=== PATIENT | female | born 1960 | race Caucasian/White ===

== ENCOUNTER 2021-12-21 14:08 | Inpatient (IN) | payer BC ==
--- NOTE | 2021-12-21 16:22 | RAD REPORT ---
EXAM DESCRIPTION: Hailee Single View12/21/2021 4:15 pm CLINICAL HISTORY: Chest pain COMPARISON: none FINDINGS: The lungs appear clear of acute infiltrate. The heart is normal size IMPRESSION: No acute abnormalities displayed
--- NOTE | 2021-12-21 17:00 | RAD REPORT ---
EXAM DESCRIPTION: US - Abdomen Exam Limited - 12/21/2021 4:37 pm CLINICAL HISTORY: Abdominal pain. COMPARISON: None. FINDINGS: 1 centimeter stone within the neck of the gallbladder. Borderline gallbladder wall thicken ing. Small to moderate amount of sludge within the gallbladder. Common bile duct measures 7 millimeters. IMPRESSION: Cholelithiasis. Borderline gallbladder wall thickening may indicate cholecystitis and should be correlated clinically Borderline dilatation of common bile duct
[2021-12-21 18:06] LABS: Absolute Lymphocytes (CBC) 2.3 K/uL (0.7-4.9); Hematocrit 37.7 % (36.0-45.0); MCV 83.8 fL (80-100); MPV 7.5 fL (7.6-11.3)
[2021-12-21] MEDS ORDERED: ONDANSETRON 4 MG (ODT) TAB ONE (18:29)
[2021-12-21 18:30] LABS: Albumin 3.8 g/dL (3.4-5.0); Potassium 4.6 mmol/L (3.5-5.1); Protein, Total 8.2 g/dL (6.4-8.2); Troponin High Sensitivity 7.6 pg/mL (<58.9)
--- NOTE | 2021-12-21 18:55 | EDPHYS ---
Physician Documentation [facility] Name: Caprice Orozco Age: 61 yrs Sex: Female : 1960 Arrival Date: 12/21/2021 Time: 14:13 Bed 12 Private MD: Christina Jasmine C ED Physician Gary Lentz HPI: 12/21 18:52 This 61 yrs old Female presents to ER via Ambulatory with complaints of Abdominal Pain, kb Shoulder Pain, Back Pain, Nausea. 18:52 The patient presents with abdominal pain in the right upper quadrant. Onset: The kb symptoms/episode began/occurred 2 day(s) ago. The symptoms radiate to left back, the right shoulder. Associated signs and symptoms: Pertinent positives: nausea and vomiting, Pertinent negatives: diarrhea, fever. The symptoms are described as constant. Modifying factors: The symptoms are alleviated by nothing, the symptoms are aggravated by pressure. Severity of pain: At its worst the pain was moderate in the emergency department the pain is unchanged. The patient has experienced a previous episode. The patient has not recently seen a physician. Historical: - Allergies: 14:30 No Known Allergies; hb - PMHx: 14:30 thyroid disease; Hypertensive disorder; hb - PSHx: 14:30 thryroid; hb - Immunization history:: Adult Immunizations up to date. - Social history:: Smoking status: Patient denies any tobacco usage or history of. ROS: 18:51 Constitutional: Negative for fever, chills, and weight loss. kb 18:51 Abdomen/GI: Positive for abdominal pain, nausea and vomiting, Negative for diarrhea, constipation. 18:51 All other systems are negative. Exam: 18:51 Constitutional: This is a well developed, well nourished patient who is awake, alert, kb and in no acute distress. Head/Face: Normocephalic, atraumatic. ENT: Moist Mucous membranes Cardiovascular: Regular rate and rhythm with a normal S1 and S2. No gallops, murmurs, or rubs. No pulse deficits. Respiratory: Respirations even and unlabored. No increased work of breathing. Talking in full sentences Skin: Warm, dry with normal turgor. Normal color. MS/ Extremity: Pulses equal, no cyanosis. Neurovascular intact. Full, normal range of motion. Neuro: Awake and alert, GCS 15, oriented to person, place, time, and situation. Moves all extremities. Normal gait. Psych: Awake, alert, with orientation to person, place and time. Behavior, mood, and affect are within normal limits. 18:51 Abdomen/GI: Inspection: abdomen appears normal, Bowel sounds: normal, in all quadrants, Palpation: soft, in all quadrants, moderate abdominal tenderness, in the right upper quadrant. Vital Signs: 14:27 BP 131 / 69; Pulse 83; Resp 18; Temp 98.6; Pulse Ox 100% ; Weight 95.25 kg; Height 5 hb ft. 9 in. (175.26 cm); Pain 10/10; 15:40 BP 140 / 71; Pulse 97; Resp 17; Pulse Ox 98% on R/A; jh5 16:40 BP 138 / 72; Pulse 96; Resp 16; Pulse Ox 98% on R/A; jh5 17:40 BP 128 / 68; Pulse 93; Resp 17; Pulse Ox 99% on R/A; jh5 18:40 BP 119 / 61; Pulse 93; Resp 18; Pulse Ox 98% on R/A; jh5 19:40 BP 115 / 61; Pulse 91; Resp 14; Pulse Ox 98% on R/A; jh5 14:27 Body Mass Index 31.01 (95.25 kg, 175.26 cm) hb MDM: 14:34 Patient medically screened. 18:51 Data reviewed: vital signs, nurses notes. Data interpreted: Pulse oximetry: on room air kb is 100 %. Interpretation: normal. Counseling: I had a detailed discussion with the patient and/or guardian regarding: the historical points, exam findings, and any diagnostic results supporting the discharge/admit diagnosis, lab results, radiology results, the need for further work-up and treatment in the hospital. Physician consultation: Ben Celestin MD was contacted at 18:51, regarding consult, patient's condition, and will see patient in inpatient room. 18:51 Physician consultation: Christina Jasmine MD was contacted at 18:51, regarding admission, to the medical/surgical unit. patient's condition, and will see patient in inpatient room. 12/21 15:32 Order name: CBC with Diff; Complete Time: 18:24 kb 12/21 15:32 Order name: CMP; Complete Time: 18:33 kb 12/21 15:32 Order name: Lipase; Complete Time: 18:33 kb 12/21 15:32 Order name: Abdomen Limited US; Complete Time: 17:04 kb 12/21 15:32 Order name: Troponin High Sensitivity; Complete Time: 18:33 kb 12/21 19:11 Order name: SARS RAPID; Complete Time: 20:59 kb 12/21 15:32 Order name: Chest Single View XRAY; Complete Time: 16:23 kb 12/21 15:32 Order name: EKG; Complete Time: 15:33 kb 12/21 15:32 Order name: EKG - Nurse/Tech; Complete Time: 16:01 kb Administered Medications: 18:31 Drug: Zofran (Ondansetron) 4 mg Route: PO; hb 19:48 Follow up: Response: Nausea is decreased 5 19:47 Drug: NS 0.9% 1000 ml Route: IV; Rate: 100 ml/hr; Site: right antecubital; 5 19:47 Drug: Pepcid (famotidine) 20 mg Route: IVP; Site: right antecubital; jh5 19:48 Drug: Zosyn (piperacillin-tazobactam) 3.375 grams Route: IVPB; Infused Over: 60 mins; jh5 Site: right antecubital; 19:48 Drug: morphine 4 mg Route: IVP; Infused Over: 4 mins; Site: right antecubital; jh5 19:48 Drug: Zofran (Ondansetron) 4 mg Route: IVP; Site: right antecubital; jh5 Disposition Summary: 12/21/21 18:53 Hospitalization Ordered Hospitalization Status: Observation kb Provider: Christina Jasmine Condition: Stable kb Problem: new kb Symptoms: are unchanged kb Bed/Room Type: Standard kb Location: [facility](12/21/21 20:10) Room Assignment: 270-(12/21/21 20:10) Diagnosis - Acute cholecystitis kb - Other cholelithiasis without obstruction kb Forms: - Medication Reconciliation Form kb - SBAR form kb Addendum: 12/26/2021 04:02 Co-signature as Attending Physician, Gary Lentz MD I agree with the assessment and c urrutia plan of care. Signatures: Dispatcher [employer] Gisela Rodriguez FNP-Fela ROY-Ckb Guallpa, DeboraREBECCA ururtia RN, Corey, MD MD cha Baxter, Heather RN Nayla Abebe RN RN jh5 Corrections: (The following items were deleted from the chart) 12/22 19: 18:53 Telemetry/MedSurg (observation) kb : 18:53 katherine
--- NOTE | 2021-12-21 18:55 | ER ---
Nurse's Notes [facility] Name: Caprice Orozco Age: 61 yrs Sex: Female : 1960 Arrival Date: 12/21/2021 Time: 14:13 Bed 12 Private MD: Christina Jasmine C Diagnosis: Acute cholecystitis;Other cholelithiasis without obstruction Presentation: 12/21 14:27 Chief complaint: Patient states: Dr. Jasmine told me to come; whole chest and belly hb pressure, shoulder blades and back pain - Advil not helping. I get nausea with dry heaving, feeling like diarrhea but never did; with associated heart burn TUMS doesn't help either. Coronavirus screen: Vaccine status: Patient reports receiving the 2nd dose of the covid vaccine. Client denies travel out of the [place] in the last 14 days. Ebola Screen: Patient negative for fever greater than or equal to 101.5 degrees Fahrenheit, and additional compatible Ebola Virus Disease symptoms Patient denies exposure to infectious person. Patient denies travel to an Ebola-affected area in the 21 days before illness onset. Initial Sepsis Screen: Does the patient meet any 2 criteria? No. Patient's initial sepsis screen is negative. Does the patient have a suspected source of infection? No. Patient's initial sepsis screen is negative. Risk Assessment: Do you want to hurt yourself or someone else? Patient reports no desire to harm self or others. Onset of symptoms was December 19, 2021. 14:27 Method Of Arrival: Ambulatory hb 14:27 Acuity: LYNN 3 hb Triage Assessment: 14:30 General: Appears in no apparent distress. uncomfortable, well groomed, well developed, hb well nourished, Behavior is calm, cooperative, appropriate for age. Pain: Complains of pain in back, chest and abdomen. GI: Abdomen is round non-distended, Reports upper abdominal pain, cramping, nausea. Historical: - Allergies: 14:30 No Known Allergies; hb - PMHx: 14:30 thyroid disease; Hypertensive disorder; hb - PSHx: 14:30 thryroid; hb - Immunization history:: Adult Immunizations up to date. - Social history:: Smoking status: Patient denies any tobacco usage or history of. Screenin:31 Abuse screen: Denies threats or abuse. Denies injuries from another. Nutritional hb screening: No deficits noted. Tuberculosis screening: No symptoms or risk factors identified. Fall Risk None identified. Assessment: 14:40 General: Appears in no apparent distress. uncomfortable, Behavior is cooperative, eh3 appropriate for age. Pain: Complains of pain in abdomen and chest and back Pain currently is 8 out of 10 on a pain scale. Neuro: Level of Consciousness is awake, alert, obeys commands, Oriented to person, place, time, situation. Cardiovascular: Capillary refill < 3 seconds Patient's skin is warm and dry. Respiratory: Airway is patent Respiratory effort is even, unlabored. GI: Abdomen is round non-distended, Bowel sounds present X 4 quads. Abd is soft and non tender. : No signs and/or symptoms were reported regarding the genitourinary system. Musculoskeletal: Circulation, motion, and sensation intact. Range of motion: intact in all extremities. 15:40 Reassessment: Patient and/or family updated on plan of care and expected duration. Pain eh3 level reassessed. Patient is alert, oriented x 3, equal unlabored respirations, skin warm/dry/pink. 16:40 Reassessment: Patient and/or family updated on plan of care and expected duration. Pain jh5 level reassessed. Patient is alert, oriented x 3, equal unlabored respirations, skin warm/dry/pink. 17:40 Reassessment: Patient and/or family updated on plan of care and expected duration. Pain jh5 level reassessed. Patient is alert, oriented x 3, equal unlabored respirations, skin warm/dry/pink. 18:40 Reassessment: Patient and/or family updated on plan of care and expected duration. Pain jh5 level reassessed. Patient is alert, oriented x 3, equal unlabored respirations, skin warm/dry/pink. 19:40 Reassessment: Patient and/or family updated on plan of care and expected duration. Pain jh5 level reassessed. Patient is alert, oriented x 3, equal unlabored respirations, skin warm/dry/pink. Vital Signs: 14:27 BP 131 / 69; Pulse 83; Resp 18; Temp 98.6; Pulse Ox 100% ; Weight 95.25 kg; Height 5 hb ft. 9 in. (175.26 cm); Pain 10/10; 15:40 BP 140 / 71; Pulse 97; Resp 17; Pulse Ox 98% on R/A; jh5 16:40 BP 138 / 72; Pulse 96; Resp 16; Pulse Ox 98% on R/A; jh5 17:40 BP 128 / 68; Pulse 93; Resp 17; Pulse Ox 99% on R/A; jh5 18:40 BP 119 / 61; Pulse 93; Resp 18; Pulse Ox 98% on R/A; jh5 19:40 BP 115 / 61; Pulse 91; Resp 14; Pulse Ox 98% on R/A; jh5 14:27 Body Mass Index 31.01 (95.25 kg, 175.26 cm) hb ED Course: 14:13 Patient arrived in ED. mr 14:13 Christina Jasmine MD is Private Physician. mr 14:22 Gisela Rodrigues FNP-C [facility]. kb 14:22 Gary Lentz MD is Attending Physician. kb 14:30 Triage completed. hb 14:30 Arm band placed on right wrist. hb 14:31 Patient has correct armband on for positive identification. hb 14:31 No provider procedures requiring assistance completed. hb 14:40 Client placed on continuous cardiac and pulse oximetry monitoring. NIBP monitoring eh3 applied. 15:18 Sanaz Deluca, RN is Primary Nurse. eh3 16:12 Missed attempt(s): 20 gauge in right antecubital area. Bleeding controlled, band aid eh3 applied, catheter tip intact. 16:17 Chest Single View XRAY In Process Unspecified. EDMS 16:38 Abdomen Limited US In Process Unspecified. EDMS 18:44 Inserted saline lock: 20 gauge in right antecubital area, using aseptic technique. jh5 18:53 Christina Jasmine MD is Hospitalizing Provider. kb Administered Medications: 18:31 Drug: Zofran (Ondansetron) 4 mg Route: PO; hb 19:48 Follow up: Response: Nausea is decreased jh5 19:47 Drug: NS 0.9% 1000 ml Route: IV; Rate: 100 ml/hr; Site: right antecubital; jh5 19:47 Drug: Pepcid (famotidine) 20 mg Route: IVP; Site: right antecubital; jh5 19:48 Drug: Zosyn (piperacillin-tazobactam) 3.375 grams Route: IVPB; Infused Over: 60 mins; jh5 Site: right antecubital; 19:48 Drug: morphine 4 mg Route: IVP; Infused Over: 4 mins; Site: right antecubital; 5 19:48 Drug: Zofran (Ondansetron) 4 mg Route: IVP; Site: right antecubital; 5 Outcome: 18:53 Decision to Hospitalize by Provider. kb 21:51 Patient left the ED. bb Signatures: Dispatcher [employer] EDGisela Denis, MARKEL ROY-Tatum Goodson mr Annia Slaughter RN RN bb Mary Grace Gallegos, RN RN Nayla Parada RN RN jh5 Sanaz Deluca RN RN eh3
[2021-12-21] MEDS ORDERED: PIPERACIL/TAZO 3.375 GM VIAL IV ONE (19:21)
[2021-12-21] MEDS ORDERED: ONDANSETRON 4 MG/2 ML VIAL ONE (19:21)
[2021-12-21] MEDS ORDERED: NA CHLORIDE 0.9% 100 ML IV ONE (19:21)
[2021-12-21] MEDS ORDERED: MORPHINE 4 MG/ML SYR ONE (19:21)
[2021-12-21] MEDS ORDERED: NA CHLORIDE 0.9% 1,000 ML ONE (19:21)
[2021-12-21] MEDS ORDERED: FAMOTIDINE 20 MG/2 ML VIAL IV ONE (19:21)
[2021-12-21 20:47] LABS: SARS-CoV-2 Antigen Rapid Res Negative (Negative)
--- NOTE | 2021-12-21 21:51 | HP ---
Date of Admission: 12/21/2021 Chief Complaint: Abdominal pain, nausea. History Of Present Illness: This is a 61-year-old very pleasant female patient, who had abdominal pain in the right upper quadrant about a month ago, and it lasted for about 6 hours and subsided. She started to have similar right upper quadrant abdominal pain in last 2 days associated with pain in her right shoulder and right scapular region and also pain in lower chest area. She also felt like her stomach was bloated. She contacted office with this information today and she was advised to come to emergency room. After she was evaluated, she was admitted to the hospital with acute cholecystitis with gallstones. She has had some nausea in last 2 days, but no vomiting at home and after she came to emergency room, she had one episode of vomiting and also had episode of really bad chills while she was in the emergency room. I saw her in the emergency room and she was overall feeling better, compared to earlier today. Allergies: NO KNOWN ALLERGIES. Medications: Carvedilol 25 mg 2 times a day; valsartan/HCTZ 320/12.5 mg, take 1 tablet by mouth daily; levothyroxine 137 mcg daily. Review of Systems: GI: As mentioned above. Constitutional: As mentioned above. All other systems reviewed and negative. Past Medical History: Significant for thyroid cancer; hypothyroidism, which is postsurgical; impaired fasting glucose; hypertension; hyperlipidemia. Past Surgical History: Hemithyroidectomy on the left side. Family History: Father had hypertension, hyperlipidemia, carotid artery stenosis, and cancer. Mother of congestive heart failure, diabetes, hypertension, and CLL. Social History: Negative for smoking. Use of alcohol rarely. Physical Examination: Vital Signs: Height 5 feet 9 inches, weight 210 pounds, temperature 98.6, pulse 83, respiratory rate 18, blood pressure 131/69, oxygen saturation 100%. General: Awake, alert, oriented, not in distress. HEENT: Head atraumatic, normocephalic. Conjunctivae nonerythematous. Sclerae white. Mouth, no thrush or edema noted. Ears/Nose, no mass, lesion, discharge noted. Neck: Supple. No JVD, lymph nodes, bruit, thyromegaly noted. Lungs: Bilateral good equal air entry. Clear to auscultation. No rhonchi. No rales. Heart: Normal heart sounds, no murmur or gallop. Abdomen: Shows presence of significant tenderness in right upper quadrant. No rebound tenderness. Bowel sounds normoactive. No guarding. No rigidity. No rebound tenderness. No abdominal distention. Extremities: No leg edema. No calf tenderness. Skin: No rash, ulcer, cellulitis. Lymphatics: No lymph node enlargement in neck, supraclavicular, infraclavicular region. Neuro: No focal neurological deficit. Chest: Unremarkable. External Genitalia: Deferred. Rectal: Deferred. Laboratory Data: White count 12.1, hemoglobin 12.3, platelets 270. Sodium 141, potassium 4.6, chloride 105, bicarb 26, glucose 118, BUN 13, creatinine 1.11, AST 12, ALT 35, alkaline phosphatase 79, total bilirubin 1, total protein 8.2, calcium 9.3, albumin 3.8, troponin 7.6, lipase 109. Abdominal ultrasound shows presence of gallstones and borderline gallbladder wall thickening. Chest x-ray, no acute cardiopulmonary changes. Impression: 1. Acute cholecystitis with gallstone. 2. Hypertension. 3. Hyperlipidemia. 4. Thyroid cancer. 5. Hypothyroidism, postsurgical. 6. Impaired fasting glucose. Plan: Admit patient to hospital for further evaluation and management of this problem. The patient is appropriate for inpatient and is expected to spend 2 midnights in hospital. We will go ahead and consult general surgeon, Dr. Celestin, and the patient will have laparoscopic cholecystectomy tomorrow morning. We will keep her n.p.o. after midnight. SCD will be ordered for DVT prophylaxis. Home medications will be ordered for blood pressure control. We will order pain medication and nausea medicine per order. Zosyn will be started per order and I will see her tomorrow morning for followup. Details and plan of treatment discussed with her. The patient is at low acceptable risk from planned surgery. MARTIN/MODL Voice ID: [id number]
[2021-12-21] MEDS ORDERED: NA CHLORIDE 0.9% 1,000 ML IV SCH (22:06)
[2021-12-21 22:32] VITALS: BMI 31.0
[2021-12-21] MEDS ORDERED: MORPHINE 4 MG/ML SYR IV PRN (23:15)
[2021-12-21] MEDS ORDERED: ONDANSETRON 4 MG/2 ML VIAL IV PRN (23:21)
[2021-12-22] MEDS ORDERED: PIPERACIL/TAZO 3.375 GM VIAL IV ONE ×2 (00:36→17:01)
[2021-12-22] MEDS ORDERED: NA CHLORIDE 0.9% 100 ML IV ONE ×2 (00:36→17:02)
[2021-12-22] MEDS ORDERED: PIPER TAZO 3.375 GM in NA CHLORIDE 0.9% 100 ML IV SCH (01:00)
[2021-12-22 05:36] LABS: Absolute Lymphocytes (CBC) 1.2 K/uL (0.7-4.9); Hematocrit 30.4 % (36.0-45.0); Lymphocytes % 9.3 % (15.3-44.8); MCV 83.1 fL (80-100); MPV 7.7 fL (7.6-11.3); RBC Red Blood Cell Count 3.66 M/uL (3.86-4.86)
[2021-12-22 05:55] LABS: Albumin 2.8 g/dL (3.4-5.0); Bilirubin Direct 0.3 mg/dL (0-0.2); Bilirubin Total 1.1 mg/dL (0.2-1.0); Potassium 3.3 mmol/L (3.5-5.1); Protein, Total 6.2 g/dL (6.4-8.2)
[2021-12-22] MEDS ORDERED: ACETAMINOPHEN 500 MG TAB PO ONE (07:38)
[2021-12-22] MEDS ORDERED: Ringers Lactate 1,000 ML IV ONE (07:58)
[2021-12-22] MEDS: carvediloL 25 MG TAB PO SCH ×2 (08:00→17:24)
[2021-12-22] MEDS ORDERED: carvediloL 25 MG TAB PO SCH (08:00)
[2021-12-22] MEDS ORDERED: INFLUENZA VACCINE (for 6+ mo) 0.5 ML DOSE IMVAC ONE (08:00)
[2021-12-22] MEDS ORDERED: Levofloxacin500mg IV 500 MG/100 ML BAG IV SCH (08:00)
--- NOTE | 2021-12-22 08:04 | P.CNS ---
Date of Consult: 12/22/21 Reason for consult: Abdominal pain History of present illness: Patient is a 61-year-old female who presented to the emergency room with 2-day history of epigastric abdominal pain radiating to the right upper quadrant and to the right side of the back. Pain is postprandial in nature, following ingestion of dairy products. Patient had a similar episode about a month ago. Patient has associated nausea vomiting and bloating. No sore throat, runny nose, cough, headaches, dizziness, chest pain, fever or chills. No diarrhea, constipation, blood per rectum, dysuria or hematuria. Review of systems: Otherwise unremarkable Past medical history: Hypertension, thyroid cancer, hypothyroidism Past surgical history: Left hemithyroidectomy Allergies: None Social history: Patient does not smoke and drinks alcohol occasionally Family history: Heart disease, hyperlipidemia, diabetes and leukemia Vital signs: Stable, afebrile Physical exam: Awake alert oriented x3 Head and neck exam: Cranial nerves II through XII grossly within normal limits, no neck masses, no JVD, throat clear and neck is supple Chest: Clear Heart: S1-S2 Abdomen: Soft, positive bowel sounds, nondistended, right upper quadrant tenderness with minimal rebound and no rigidity or guarding Extremity: Neurovascular intact, nontender Neuro: Nonfocal Diagnostic data: White count is 12.5 with a left shift. LFTs are within normal limits. Ultrasound of the abdomen shows gallstone stuck in the neck of the gallbladder. Common bile duct is 7 mm. Assessment: Acute cholecystitis and cholelithiasis Plan/recommendation: Admit, n.p.o., IV fluid, IV antibiotics and to the OR for laparoscopic cholecystectomy possible open. Patient and family understand risk benefits alternatives and agreed to procedure. CC: Dr. Jasmine's office
[2021-12-22] MEDS ORDERED: CEFOXITIN SODIUM 1 GM/VIAL ONE (08:19)
[2021-12-22] MEDS ORDERED: BUPIVACAINE 0.5% PF 10 ML VIAL ONE (09:21)
[2021-12-22] MEDS ORDERED: MIDAZOLAM HCL 2 MG/2 ML INJ ONE (10:17)
[2021-12-22] MEDS ORDERED: ROCURONIUM 50 MG/5 ML VIAL IV ONE (10:17)
[2021-12-22] MEDS ORDERED: propofoL 200 MG/20 ML VIAL IV ONE (10:17)
[2021-12-22] MEDS ORDERED: FENTANYL CITR 100 MCG/2 ML ONE (10:17)
[2021-12-22] MEDS ORDERED: LIDOCAINE 2% MPF 5 ML VIAL ONE (10:19)
[2021-12-22] MEDS ORDERED: NS 0.9% VIAL 10 ML ONE (10:36)
[2021-12-22] MEDS ORDERED: dexAMETHasone 10 MG/ML VIAL ONE (10:55)
[2021-12-22] MEDS ORDERED: KETOROLAC 30 MG/ML INJ ONE (10:55)
[2021-12-22] MEDS ORDERED: ONDANSETRON 4 MG/2 ML VIAL ONE (11:03)
--- NOTE | 2021-12-22 11:14 | PN ---
Date of Progress Note: 12/22/2021 Subjective: Patient was seen this morning for followup. No new complaints or problems reported. Amador edwards was seen in the surgery holding area prior to her gallbladder surgery this morning. Her sister was with her at bedside. She did not require any pain medication last night as she reports overall she feels better. Did require some nausea medicine once during nighttime. Objective: Vital Signs: Reviewed. HEENT: Unremarkable. Lungs: Clear to auscultation. Heart: Sounds normal. Abdomen: Soft. Bowel sounds normal. No guarding, rigidity, distention. Presence of right upper qu adrant tenderness, but less today than yesterday. Extremities: No leg edema. Laboratory Data: White count potassium 3.3, chloride 103, bicarb 28, BUN 18, creatinine 1 .37, glucose 110. Impression: 1.Acute cholecystitis with gallstones. 2.Hypertension. 3.Acute kidney injury. 4.Hypokalemia. 5.Anemia. Plan: We will go ahead and continue IV fluid per order. Her acute kidney injury could be due to vol ume depletion. Continue IV fluid. We will also change antibiotic from IV Zosyn to Levaquin that is less likely for Zosyn to cause this kind of acute kidney injury just after receiving 1 or 2 doses, bu t just to be on safe side, we will change the antibiotic as well. We will repeat another blood work to follow up on renal function this afternoon and depending on that, we will be making decision if amador edwards can go home from renal point of view or not. Otherwise, we will keep her in the hospital. Continu e IV fluid hydration and possible discharge to go home tomorrow. Details were discussed with her. MARTIN/MODL Voice ID: [id number] Report ID: [id number]
[2021-12-22] MEDS ORDERED: GLYCOPYRROLATE 0.2 MG/ML SYR ONE (11:42)
[2021-12-22] MEDS ORDERED: NEOSTIGMINE 1 MG/ML -10 ML VIAL ONE (11:42)
--- NOTE | 2021-12-22 12:00 | P.OP ---
Date of Service: 12/22/21 Preop diagnosis: Acute cholecystitis and cholelithiasis Postop diagnosis: Same, extensive adhesions in the right side of the abdomen, u mbilical hernia Procedure performed: Laparoscopic cholecystectomy, lysis of adhesions, repair of umbilical hernia Surgeon: Ben Celestin MD Production Operations Engineer: ERYN Longoria Estimated blood loss: Minimal Specimen: Gallbladder and hernia sac Findings: As above Anesthesia: General Complications: None Drains: CHRIST #10 flat Fluids and blood products: Nonapplicable Disposition: Recovery room Operative note: Patient brought to the OR and placed in supine position. General anesthesia begun. Patient prepped and draped in usual sterile fashion. Marcaine 0.5% infiltrated locally. 15 blade used to make a 2 cm incision above the umbilicus in the midline. Patient had a small umbilical hernia at this location. Hernia sac and contents were excised. #1 Vicryl stay sutures were placed. Peritoneal cavity entered with sharp and blunt dissection. 12 mm trocar placed into the peritoneal cavity under direct vision. Pneumoperitoneum established. Under direct vision a 5 mm trocar placed in the epigastric region just to the right of midline. At this point laparoscopy revealed extensive adhesion on the right side of the abdomen. LigaSure was utilized in the standard fashion to take down all of these adhesions. All these adhesions were omental in nature. There was no bowel involvement noted. All adhesions were taken down on the right side of the abdomen. Then 2 5 mm trochars were placed under direct vision in the right subcostal region. Laparoscopy revealed a very distended gallbladder thick-walled. Gallbladder was aspirated of pus. This was consistent with acute cholecystitis. The fundus was retracted superiorly. Infundibulum was identified and retracted inferolaterally. Cystic duct and cystic artery were clearly identified. Clips placed and both structures divided. Patient also had a large lymph node at this point. The lymph node and the gallbladder were both removed from the liver bed utilizing cautery. Bleeding on the liver bed with sterile controlled cautery. Subsequently, the gallbladder retrieved through the umbilicus via Endo Catch bag. Right upper quadrant was irrigated. There was no evidence of bleeding or bile leakage appreciated. But there was a lot of inflammatory tissue present. Therefore, a Ravi-Dneson drain #10 flat was placed in the gallbladder fossa and the right upper quadrant. The drain was secured with 3-0 nylon. Then all trochars removed under direct vision. Stay sutures tied to each other to close the fascial hernia defect. Subcutaneous wound was irrigated and bleeding controlled with cautery. 3-0 chromic was used to loosely reapproximate subcutaneous tissue. Staple used to close skin. Sterile dressing applied. Patient awakened and taken to recovery room in good general condition. CC: Dr. Jasmine's office
[2021-12-22] MEDS ORDERED: PROMETHAZINE INJ 25 MG/ML AMP ONE (12:23)
[2021-12-22] MEDS: D5 0.9 NS 1,000 ML IV SCH ×2 (13:50→18:00)
[2021-12-22] MEDS: KCL 20 MEQ/100 mL IVPB 20 MEQ/100 ML BAG IV SCH ×2 (15:00→18:40)
[2021-12-22] MEDS: HYDROCODONE/APAP 7.5/325 MG TAB PO PRN (15:41)
[2021-12-22] MEDS: PIPER TAZO 3.375 GM in NA CHLORIDE 0.9% 100 ML IV SCH (17:10)
[2021-12-22] MEDS: HYDROMORPHONE HCL 1 MG/ML INJ IV PRN ×2 (17:12→20:40)
[2021-12-22] MEDS: ONDANSETRON 4 MG/2 ML VIAL IV PRN ×2 (17:24→23:08)
[2021-12-22 18:35] LABS: Magnesium 1.9 mg/dL (1.8-2.4); Potassium 3.6 mmol/L (3.5-5.1)
[2021-12-22] MEDS ORDERED: MAGNES/ALUMIN/SIMET 30ML UCUP PO PRN (19:58)
[2021-12-22] MEDS ORDERED: FAMOTIDINE 20 MG TAB PO ONE (20:00)
[2021-12-22] MEDS ORDERED: FAMOTIDINE 20 MG TAB ONE (20:28)
[2021-12-22] MEDS: NA CHLORIDE 0.9% 1,000 ML IV SCH (22:27)
[2021-12-23] MEDS: PIPER TAZO 3.375 GM in NA CHLORIDE 0.9% 100 ML IV SCH ×3 (00:43→16:37)
[2021-12-23 06:13] LABS: Absolute Lymphocytes (CBC) 0.8 K/uL (0.7-4.9); Hematocrit 29.4 % (36.0-45.0); Lymphocytes % 8.3 % (15.3-44.8); MCV 82.7 fL (80-100); MPV 8.1 fL (7.6-11.3); RBC Red Blood Cell Count 3.55 M/uL (3.86-4.86)
[2021-12-23] MEDS: NA CHLORIDE 0.9% 1,000 ML IV SCH ×2 (06:21→15:07)
[2021-12-23 06:28] LABS: Phosphorus 2.9 mg/dL (2.5-4.9); Potassium 3.6 mmol/L (3.5-5.1)
[2021-12-23] MEDS: carvediloL 25 MG TAB PO SCH ×2 (08:47→16:37)
[2021-12-23] MEDS: HYDROMORPHONE HCL 1 MG/ML INJ IV PRN (08:47)
[2021-12-23] MEDS: ONDANSETRON 4 MG/2 ML VIAL IV PRN (08:47)
[2021-12-23] MEDS ORDERED: POTASSIUM CL SA 10 MEQ TAB PO ONE (09:00)
--- NOTE | 2021-12-23 10:45 | P.PN ---
Date of Service: 12/23/21 Subjective: Patient has mild abdominal discomfort. Patient is tolerating clear liquids. Objective: Vital stable, afebrile. White count is normal. CHRIST drain put out 60 cc in the last shiftserosanguineous. Abdomen: Soft, nondistended, positive bowel sounds with minimal incisional tenderness. Dressing is clean dry and intact. Assessment: Status post laparoscopic cholecystectomy, repair of umbilical hernia and lysis of adhesion. Plan: Continue IV antibiotics, hydration, incentive spirometry, SCDs and encourage ambulation. Continue CHRIST drain for the time being. Probable discharge in the morning. CC:
[2021-12-23] MEDS ORDERED: INFLUENZA VACCINE (for 6+ mo) 0.5 ML DOSE IMVAC ONE (11:00)
--- NOTE | 2021-12-23 11:35 | PN ---
Date of Progress Note: 12/23/2021 Subjective: Patient was seen this morning for followup. No new complaints or problems reported by charley marques. Overall, her pain is better. She still has some nausea. She still has pain, but it is bett er than what it was before her surgery. She still requires some pain and nausea medication. Dr. Vitaly urrutia from General Surgery called me yesterday and informed me that he did notice some pus in the gallbl adder, so he actually has left the drainage tube in place. He also saw 1 lymph node was enlarged in the gallbladder area, which he has biopsied and we will wait for the biopsy results. Objective: Vital Signs: Reviewed. HEENT: Unremarkable. Lungs: Clear to auscultation. Heart: Sounds normal. Abdomen: Presence of dressing over surgical incisions and drainage tube in the right upper quadrant draining pink color serosanguineous drainage in the CHRIST drain. Extremities: No leg edema. Laboratory Data: White count 9.4, hemoglobin 10, platelets 138. Sodium 137, potassium 3.6, chloride 106, bicarb 24, BUN 27, creatinine 1.35 this morning with glucose 149. Yesterday evening, creatinin e was 1.49. Yesterday morning, creatinine was 1.37. Upon admission, creatinine was 1.1. Impression: 1.Acute cholecystitis with gallstones. 2.Acute kidney injury. 3.Volume depletion. 4.Hypertension. 5.Hyperlipidemia. 6.Hypothyroidism, postsurgical. 7.Impaired fasting glucose. 8.Anemia, unspecified. Plan: We will continue current medication. Continue current IV fluid, normal saline, but reduce rat e from 125 to 100 cc/h. We will repeat blood work tomorrow morning. Continue current antibiotic, Zo syn. Continue pain medication, nausea medicine per order. Patient has SCD in place and she was enco uraged to spend about 1-2 hours in the chair around mealtime and ambulate as much as she can. Detail s were discussed with Dr. Celestin today and plan is to discharge her to go home tomorrow depending on h er condition. Also, talked to her daughter on the phone while I was in room with patient. MARTIN/MODL Voice ID: [id number] Report ID: [id number]
[2021-12-23] MEDS ORDERED: PROMETHAZINE INJ 25 MG/ML AMP IV PRN (13:05)
[2021-12-23] MEDS ORDERED: FAMOTIDINE 20 MG TAB PO ONE (13:10)
--- NOTE | 2021-12-23 16:57 | EKG ---
Test Date: 2021-12-21 Test Time: 15:54:12 [id number] Developer: ADINA MEASUREMENT RESULTS: Intervals: Rate: 60 AL: 164 QRSD: 88 QT: 402 QTc: 402 [place]: P: 42 AL: 164 QRS: 38 T: 43 INTERPRETIVE STATEMENTS: Normal sinus rhythm Normal ECG No previous ECG available for comparison Electronically Signed On 12-23-21 16:54:18 CDT by Mathieu Santiago
--- NOTE | 2021-12-23 16:58 | EKG ---
Test Date: 2021-12-21 Test Time: 14:34:07 Professor Of Religious Studies: HB MEASUREMENT RESULTS: Intervals: Rate: 65 [place]: 170 QRSD: 88 QT: 384 QTc: 399 [place]: P: 34 [place]: 170 QRS: 24 T: 30 INTERPRETIVE STATEMENTS: Normal sinus rhythm Normal ECG No previous ECG available for comparison Electronically Signed On 12-23-21 16:54:22 CDT by Mathieu Santiago
[2021-12-23] MEDS ORDERED: FAMOTIDINE 20 MG TAB PO SCH (21:00)
[2021-12-24] MEDS: HYDROCODONE/APAP 7.5/325 MG TAB PO PRN ×2 (00:11→08:44)
[2021-12-24] MEDS: PIPER TAZO 3.375 GM in NA CHLORIDE 0.9% 100 ML IV SCH ×2 (00:12→08:45)
[2021-12-24] MEDS: NA CHLORIDE 0.9% 1,000 ML IV SCH ×2 (00:12→06:12)
[2021-12-24 06:12] LABS: Absolute Lymphocytes (CBC) 1.5 K/uL (0.7-4.9); Hematocrit 28.8 % (36.0-45.0); MPV 8.1 fL (7.6-11.3); RBC Red Blood Cell Count 3.47 M/uL (3.86-4.86)
[2021-12-24 06:29] LABS: Albumin 2.5 g/dL (3.4-5.0); Bilirubin Total 0.4 mg/dL (0.2-1.0); Magnesium 2.3 mg/dL (1.8-2.4); Potassium 3.8 mmol/L (3.5-5.1); Protein, Total 5.9 g/dL (6.4-8.2)
[2021-12-24 08:20] VITALS: BP 143/67; TEMP 96.8
[2021-12-24] MEDS: carvediloL 25 MG TAB PO SCH (08:45)
[2021-12-24] MEDS ORDERED: FAMOTIDINE 20 MG TAB PO SCH (09:00)
[2021-12-24] MEDS ORDERED: POTASSIUM CL SA 10 MEQ TAB PO ONE (09:00)
--- NOTE | 2021-12-24 10:00 | P.PN ---
Date of Service: 12/24/21 Subjective: Patient feels much better today. Patient is tolerating regular diet. Objective: Vital stable, afebrile. White count is normal. CHRIST drain put out 120 cc cc in the last shiftserosanguineous. Abdomen: Soft, nondistended, positive bowel sounds with minimal incisional tenderness. Dressing is clean dry and intact. Assessment: Status post laparoscopic cholecystectomy, repair of umbilical hernia and lysis of adhesion. Plan: Patient is cleared for discharge. Discharge instructions given in detail. Patient will follow-up with me on Saturday. CC:
[2021-12-24 11:00] VITALS: O2SAT 98
[2021-12-24] MEDS ORDERED: FAMOTIDINE 20 MG TAB PO ONE (13:08)
--- NOTE | 2021-12-25 03:47 | DS ---
Date of Discharge: 12/24/2021 Subjective: The patient was seen this morning for followup. She was sitting in the chair, feeling a lot better. Denies any new complaints. Objective: Vital Signs: Reviewed. HEENT: Examination unremarkable. Lungs: Clear to auscultation. Heart: Sounds normal. Abdomen: Soft. Bowel sounds normal. No guarding, rigidity, tenderness, or distention. Extremities: No leg edema. Laboratory Data: Upon admission: White count 12.1, hemoglobin 12.3, platelets 270. Today white cou nt 9.7, platelets 166. Upon admission: Sodium 141, potassium 4.6, chloride 105, bicarb 26, BUN 13, creatinine 1.11, glucose 118. Liver function tests unremarkable. Highest creatinine was 1.49 on and today sodium 143, potassium 3.8, chloride 114, bicarb 24, BUN 24, creatinine 1.14, glucos e 107. Liver function tests unremarkable. Discharge Medications And Instructions: Continue all prior home medications. Take following new med ications and prescriptions will be sent to Pharmacy: 1.Augmentin 875 mg take 1 tablet by mouth 2 times a day for 10 days. 2.Promethazine 25 mg take 1 tablet by mouth 4 times a day as needed for nausea and vomiting. 3.Tramadol 50 mg take 1 tablet by mouth 4 times a day as needed for pain. 4.May use Tylenol 500 mg 4 times a day as needed for pain. 5.Famotidine 20 mg 2 times a day. Prescription will be sent to [facility]. Follow up at my office week after next. Follow up with Dr. Celestin next week. Hospital Course: This is a 61-year-old female patient admitted to the hospital with abdominal pain a nd nausea. Please see dictated H and P for more information. The patient was evaluated in the emerg ency room and was admitted to the hospital with gallstones with acute cholecystitis. After she was e valuated in the ER, she was admitted to the hospital. IV antibiotic Zosyn was started. IV fluid was started. Pain medication and nausea medication were started. Consultation was obtained from [facility] surgeon, Dr. Celestin and he did laparoscopic cholecystectomy on her the day after admission. During surgery, he found out that the patient was noted to have pus in her gallbladder, so he did end up put ting drainage to it and it is draining serosanguineous fluid. After surgery, the patient continued t o have some nausea and Zofran did not help and once we started her on Phenergan yesterday, she starte d showing significant improvement. She was started on diet and she has tolerated that very well. Sh grace is ambulating well. DVT prophylaxis was given using SCD. Today she feels a lot better. She did h ave volume depletion and acute kidney injury, which has resolved with use of IV fluid hydration. The patient will be discharged to go home in stable condition today. Final Diagnoses: 1.Acute cholecystitis with gallstones. 2.Acute kidney injury. 3.Volume depletion. 4.Anemia, unspecified. 5.Hypertension. 6.Hyperlipidemia. 7.Thyroid cancer. 8.Hypothyroidism, postsurgical. 9.Impaired fasting glucose. MARTIN/MODL Voice ID: [id number] Report ID: [id number]
== END 2021-12-24 11:50 | disposition home or self-care (01) | DRG 418 ==
LOC: ER 14:08 → ERHOLD 19:13 → UNDOADMOB 19:37 → INTOOBSV 19:38 → OBSVTOIN 19:38 → 2ND-WC 21:33 → 4TH 12-22 22:21 → 2ND 12-22 23:00
PROVIDERS: ADMIT Internal Medicine; ATTEND Internal Medicine
PROC: 0DNU4ZZ Release Omentum, Percutaneous Endoscopic Approach (ICD-10-PCS; 2021-12-22)
PROC: 0WQF4ZZ Repair Abdominal Wall, Percutaneous Endoscopic Approach (ICD-10-PCS; 2021-12-22)
PROC: 0FT44ZZ Resection of Gallbladder, Percutaneous Endoscopic Approach (ICD-10-PCS; principal; 2021-12-22 09:45)
DX: K80.00 Calculus of gallbladder with acute cholecystitis without obstruction (principal); N17.9 Acute kidney failure, unspecified; I10 Essential (primary) hypertension; K42.9 Umbilical hernia without obstruction or gangrene; E78.5 Hyperlipidemia, unspecified; D64.9 Anemia, unspecified; E87.6 Hypokalemia; E86.9 Volume depletion, unspecified; E89.0 Postprocedural hypothyroidism; K66.0 Peritoneal adhesions (postprocedural) (postinfection); R73.01 Impaired fasting glucose; Z85.850 Personal history of malignant neoplasm of thyroid; Z20.822 Contact with and (suspected) exposure to COVID-19
CPT/HCPCS: 36415; 71045; 76705; 80048; 80053; 80076; 83690; 83735; 84100; 84484; 85025; 87811; 88302; 88304; 93005; 94010; 96374; 96375; 99284; A4216; J0694; J1100; J1170; J2001; J2250; J2405; J2543; J2550; J2704; J2710; J3010; J3480; J7030; J7042; J7120; Q0162